=== PATIENT | female | born 1980 | race Caucasian/White ===

== ENCOUNTER 2017-06-26 21:19 | Emergency (ER) | payer MEDICAID, OTHER ==
[~2017-06-26] VITALS: Ht 167.6 cm; Wt 79.0 kg
[~2017-06-26 21:19] MED LIST: TYLENOL
[2017-06-26 21:26] VITALS: Ht 167.6 cm; Wt 79.0 kg
--- NOTE | 2017-06-27 00:06 | RADRPT ---
PROCEDURE: XR Foot. CLINICAL INDICATION: foot pain s/p trauma TECHNIQUE: AP, lateral and oblique views of the right foot was obtained. The images were reviewed on a PACS workstation. COMPARISON: None. FINDINGS: The bones of the foot appear intact, with no evidence of fracture, dislocation, or subluxation. The joint spaces are preserved. Bone mineralization is normal. No significant soft tissue swelling is se en. IMPRESSION: Unremarkable right foot radiographs. No visualized fracture or dislocation. RPTAT: HBST .Gareth Warren MD, MD Date Time Electronically viewed and signed by .Gareth Warren MD, on 06/27/2017 00:06 .T/
[2017-06-27] MEDS ORDERED: IBUP-1542 PO (00:26)
--- NOTE | 2017-06-27 00:34 | ERD ---
ER Documentation Chief Complaint Date/Time DATE: 06/27/17 TIME: 00:28 Chief Complaint right big toe pain-hit the bed HPI Patient is a 36-year-old male who presents with pain to her right second toe after hitting it on the metal bed rail 2 days ago. Patient reports ecchymosis and swelling to the affected toe. She reports putting ice on it however she did not take any pain medication. Patient denies any previous injuries to the affected extremity. Patient states that she does have pain when plantar flexing. And putting weight on her toe when walking. Patient denies any fevers , chills, nausea, vomiting, upper leg pain or LOC. ROS All systems reviewed and are negative except as per history of present illness. Medications Home Meds Active Scripts Ibuprofen* (Motrin*) 600 Mg Tab, 600 MG PO Q6, #30 TAB Prov:SHAWN HAWK PA-C 06/27/17 Reported Medications [Tylenol] No Conflict Check 02/25/11 Allergies Allergies: Coded Allergies: No Known Allergies (Verified Allergy, Mild, 02/25/11) PMhx/Soc Medical and Surgical Hx: pt denies Medical Hx, pt denies Surgical Hx History of Surgery: No Anesthesia Reaction: No Hx Neurological Disorder: No Hx Respiratory Disorders: No Hx Cardiac Disorders: No Hx Psychiatric Problems: No Hx Miscellaneous Medical Probl: No Hx Alcohol Use: No Hx Substance Use: No Hx Tobacco Use: No Smoking Status: Never smoker Physical Exam Vitals Vital Signs Date Time Temp Pulse Resp B/P Pulse Ox O2 Delivery O2 Flow Rate FiO2 06/27/17 00:48 98.4 92 15 120/75 100 Room Air 06/26/17 21:26 97.6 108 20 115/73 100 Physical Exam GENERAL: Well-developed, well-nourished female. Appears in no acute distress. HEAD: Normocephalic, atraumatic. EYES: Pupils are equally reactive bilaterally. EOMs grossly intact. No conjunctival erythema. ENT: Moist mucous membranes. No uvula deviation. No kissing tonsils. NECK: Supple. No meningismus. Normal range of motion of the neck. LUNG: Clear to auscultation bilaterally. No rhonchi, wheezing, rales or coarse breath sounds. HEART: Regular rate and rhythm. No murmurs, rubs or gallops. EXTREMITIES: Equal pulses bilaterally. No peripheral clubbing, cyanosis or edema. No unilateral leg swelling. NEUROLOGIC: Alert and oriented. Moving all four extremities without any difficulty. Normal speech. Steady gait. SKIN: Normal color. Warm and dry. No rashes or lesions. RIGHT FOOT: Skin intact. Ecchymosis and swelling noted to the patient's second toe aand toe base. Nontender to palpation of the fifth metatarsal, midfoot, ankle, tibia/fibula. Sensation intact to light touch. Neurovascularly intact. ( Able to plantarflex, dorsiflex, hermilo foot, invert foot, raise big toe.) 2+ DP and DT pulses. Procedures/MDM ED COURSE: The patient was stable throughout ED course. I kept the patient and/or family informed of laboratory and diagnostic imaging results throughout the ED course. DIAGNOSTIC IMAGING: Read by radiologist. Patient: JOE KNOX : 1980 Age: 36 Sex: F MR #: [id number] DOS: 06/26/17 2319 Ordering MD: SHAWN HAWK PA-C Location: [facility] Room/Bed: PROCEDURE: XR Foot. CLINICAL INDICATION: foot pain s/p trauma TECHNIQUE: AP, lateral and oblique views of the right foot was obtained. The images were reviewed on a PACS workstation. COMPARISON: None. FINDINGS: The bones of the foot appear intact, with no evidence of fracture, dislocation, or subluxation. The joint spaces are preserved. Bone mineralization is normal. No significant soft tissue swelling is seen. IMPRESSION: Unremarkable right foot radiographs. No visualized fracture or dislocation. RPTAT: HBST .Gareth Warren MD, MD Date Time Electronically viewed and signed by .Gareth Warren MD, MD on 06/27/2017 00:06 .T/ CC: SHAWN HAWK PA-C PROCEDURES: SPLINT APPLICATION: The patient was verbally consented at bedside prior to splint application. Patient was explained the risks, benefits and alternatives to this procedure. The patient was neurovascularly intact prior to and status post application of the splint. The patient tolerated the procedure well with no complications. Splint type: walking ortho shoe Extremity: right foot Indication: toe contusion, unable to rule out any ligament or tendon injuries. MEDICAL DECISION MAKING: This is a 36-year-old female with right second toe pain after hitting it on the metal bed frame 2 days ago.. Vital signs were reviewed. Patient was afebrile. Imaging was unremarkable. Patient was placed in an ortho walking shoe for comfort measures. Given these findings, the patients presentation is most consistent with right 2nd toe contusion. I have a much lower clinical concern for ankle dislocation, tibia fracture, fibula fracture, ankle fracture, tarsal bone fracture, metatarsal fracture, phalangeal fracture, stress fracture, compartment syndrome , plantar fasciitis. At this time, unable to rule out any tendon and ligament injuries including a Lisfranc injury at this time. PRESCRIPTIONS: Ibuprofen DISCHARGE: At this time, patient is stable for discharge and outpatient management. Patient given a copy of all imaging studies obtained today. RICE therapy advised. I have instructed the patient to follow-up with his/her primary care physician in 1-2 days. I have discussed with the patient the possibility of needing to see an front end alignment specialist for further workup and imaging if the pain persists. I have instructed the patient to promptly return to the ER for any new or worsening symptoms including increased pain, swelling, redness, warmth or fever. The patient and/or family expressed understanding of and agreement with this plan. All questions were answered. Home care instructions were provided. Disclaimer: Inadvertent spelling and grammatical errors are likely due to EHR/ dictation software use and do not reflect on the overall quality of patient care. Also, please note that the electronic time recorded on this note does not necessarily reflect the actual time of the patient encounter. Departure Diagnosis: Primary Impression: Toe contusion Encounter type: initial encounter Toe: unspecified toe Damage to nail status: without damage Qualified Code: S90.129A - Contusion of toe without damage to nail, unspecified toe, initial encounter Condition: Stable Patient Instructions: Sprain Toe Referrals: COMMUNITY CLINICS YOU HAVE RECEIVED A MEDICAL SCREENING EXAM AND THE RESULTS INDICATE THAT YOU DO NOT HAVE A CONDITION THAT REQUIRES URGENT TREATMENT IN THE EMERGENCY DEPARTMENT. FURTHER EVALUATION AND TREATMENT OF YOUR CONDITION CAN WAIT UNTIL YOU ARE SEEN IN YOUR DOCTORS OFFICE WITHIN THE NEXT 1-2 DAYS. IT IS YOUR RESPONSIBILITY TO MAKE AN APPOINTMENT FOR FOLOW-UP CARE. IF YOU HAVE A PRIMARY DOCTOR --you should call your primary doctor and schedule an appointment IF YOU DO NOT HAVE A PRIMARY DOCTOR YOU CAN CALL OUR PHYSICIAN REFERRAL HOTLINE AT IF YOU CAN NOT AFFORD TO SEE A PHYSICIAN YOU CAN CHOSE FROM THE FOLLOWING [facility] [address] [facility] [address] [facility] [address] [facility] [address] [facility]. [facility] [address] [facility]. [facility] [address] YOU HAVE RECEIVED A MEDICAL SCREENING EXAM AND THE RESULTS INDICATE THAT YOU DO NOT HAVE A CONDITION THAT REQUIRES URGENT TREATMENT IN THE EMERGENCY DEPARTMENT. FURTHER EVALUATION AND TREATMENT OF YOUR CONDITION CAN WAIT UNTIL YOU ARE SEEN IN YOUR DOCTORS OFFICE WITHIN THE NEXT 1-2 DAYS. IT IS YOUR RESPONSIBILITY TO MAKE AN APPOINTMENT FOR FOLOW-UP CARE. IF YOU HAVE A PRIMARY DOCTOR --you should call your primary doctor and schedule and appointment IF YOU DO NOT HAVE A PRIMARY DOCTOR YOU CAN CALL OUR PHYSICIAN REFERRAL HOTLINE AT . IF YOU CAN NOT AFFORD TO SEE A PHYSICIAN YOU CAN CHOSE FROM THE FOLLOWING [facility]: [facility] [address] [place] [address] [facility] [address] [place] [address] [facility] [address] [place] [address] [facility] Hours: Mon-Fri 9:00 AM - 5:00 PM Additional Instructions: Unable to rule out any ligament or tendon injuries. Patient advised to follow- up with an front end alignment specialist on an outpatient basis. Patient may need an MRI to rule out any injuries including a Lisfranc injury. Call your primary care doctor TOMORROW for an appointment during the next 1-2 days.See the doctor sooner or return here if your condition worsens before your appointment time. SHAWN HAWK PA-C Jun 27, 2017 00:34
[2017-06-27 00:48] VITALS: BP 120/75; PULSE 92; RESP 15; TEMP 98.4
== END 2017-06-27 00:49 | disposition home or self-care (01) ==
LOC: FTE 21:19
DX: S90.121A Contusion of right lesser toe(s) without damage to nail, initial encounter (principal); W22.09XA Striking against other stationary object, initial encounter; Y92.9 Unspecified place or not applicable
CPT/HCPCS: 73630; Z7502